=== PATIENT | female | born 1950 | race Caucasian/White ===

== ENCOUNTER 2018-03-11 19:05 | Emergency (ER) | payer MEDICARE, BC ==
[2018-03-11 19:28] VITALS: BP 154/91
[2018-03-11] MEDS ORDERED: HYDROcodone/ACETAMIN 5-325 MG* 1 TAB PO ONE (19:47)
--- NOTE | 2018-03-11 19:54 | ED ---
Back Pain - HPI Summary HPI Summary: 67 yr old female with the complaint of right flank pain. She fell down some steps when her slipper slipped on the stair. Her daughter was with her. No LOC. No head or neck injury. She hit her right flank area on the steps. She has pain in the area and it is worse when she stands. She has pain radiating into her right hip and buttock area. Denies other injuries. Pain is moderate. She had tried ice with little relief Injury occurred at 530 pm. - History of Current Complaint Chief Complaint: UCBackPain Stated Complaint: S/P FALL LOWER RIGHT BACK Time Seen by Provider: 03/11/18 19:37 Pain Intensity: 7 - Allergies/Home Medications Allergies/Adverse Reactions: Allergies Allergy/AdvReac Type Severity Reaction Status Date / Time phenobarbital Allergy See Comment Verified 03/11/18 19:19 Home Medications: Home Medications Atorvastatin* [Lipitor 20 MG*] 20 mg QPM 03/11/18 [History Confirmed 03/11/18] Escitalopram (NF) [Lexapro 5 mg (NF)] 5 mg QPM 03/11/18 [History Confirmed 03/11] Levothyroxine TAB* [Synthroid TAB*] 50 mcg QAM 03/11/18 [History Confirmed 03/11] PMH/Surg Hx/FS Hx/Imm Hx Endocrine/Hematology History: Reports: Hx Thyroid Disease - HYPO Cardiovascular History: Reports: Hx Hypertension - Surgical History Surgery Procedure, Year, and Place: PARATHYROID-2008. THYROID-2008. [place] teeth Infectious Disease History: No Infectious Disease History: Denies: Traveled Outside the [place] in Last 30 Days - Social History Alcohol Use: Rare Substance Use Type: Reports: None Smoking Status (MU): Never Smoked Tobacco Review of Systems Positive: Other - flank and back pain after falling. All Other Systems Reviewed And Are Negative: Yes Physical Exam Triage Information Reviewed: Yes Vital Signs On Initial Exam: Initial Vitals Temp Pulse Resp BP Pulse Ox 98.6 F 63 16 154/91 100 03/11/18 19:21 03/11/18 19:21 03/11/18 19:21 03/11/18 19:21 03/11/18 19:21 Vital Signs Reviewed: Yes Appearance: Positive: Well-Appearing, No Pain Distress Skin: Positive: Warm, Skin Color Reflects Adequate Perfusion Head/Face: Positive: Normal Head/Face Inspection Eyes: Positive: EOMI ENT: Positive: Normal ENT inspection Neck: Positive: Nontender Respiratory/Lung Sounds: Positive: Clear to Auscultation, Breath Sounds Present Cardiovascular: Positive: RRR. Negative: Murmur Abdomen Description: Positive: CVA Tenderness (R), Other: - no bruise anywhere on trunk. No tenderness of the abdomen. She has some cva tenderness right side. No tenderness over the right hip or right side of pelvis. Musculoskeletal: Positive: Strength/ROM Intact, Other - Negative CTLS tenderness. Neurological: Positive: Sensory/Motor Intact, Alert, Oriented to Person Place, Time, CN Intact II-III Psychiatric: Positive: Normal - [place] Coma Scale Best Eye Response: 4 - Spontaneous Best Motor Response: 6 - Obeys Commands Best Verbal Response: 5 - Oriented Coma Scale Total: 15 Diagnostics - Vital Signs Vital Signs Temp Pulse Resp BP Pulse Ox 03/11/18 19:21 98.6 F 63 16 154/91 100 - Laboratory Lab Statement: Any lab studies that have been ordered have been reviewed, and results considered in the medical decision making process. - CT abd pelvis/lumbar spine fracture CT Interpretation: Positive (See Comments) - L-3 spine fracture, transverse process, herniated disks. CT Interpretation Completed By: Radiologist Back Pain Course/Dx - Course Course Of Treatment: 67 yr old with flank injury, and complains of pain in right hip area. CT abd pelvis. She has spine fracture. transfer center at [facility] and they are aware of patient coming there for further evaluation. transfer by ambulance. - Diagnoses Provider Diagnoses: Fracture of lumbar spine, Radiculopathy Discharge - Sign-Out/Discharge Documenting (check all that apply): Discharge/Admit/Transfer - Discharge Plan Condition: Good Disposition: TRANS HIGHER LVL OF CARE FAC Referrals: Renée Neal MD [Primary Care Provider] - - Billing Disposition and Condition Condition: GOOD Disposition: Trans Higher Lvl of Care Fac
--- NOTE | 2018-03-11 21:17 | RAD ---
Indication: Right flank injury. Right low back pain. CT of the abdomen and pelvis was performed without oral or IV contrast administration. Coronal and sagittal reconstructed images were obtained. Lung bases demonstrate no pleural fluid, nodules or masses. Heart is of normal size without evidence of pericardial effusion. Liver is normal in size. No focal lesions or intrahepatic duct dilatation. The spleen is normal in size. The pancreas demonstrates no mass or pancreatic ductal location although the tail is not visualized. Common duct is not dilated. No adrenal masses are noted. The kidneys demonstrates no hydronephrosis. No focal masses are noted. No retroperitoneal lymphadenopathy is noted. The retroperitoneal hematoma is noted. Aorta and inferior vena cava are unremarkable. No dilated loops of bowel are noted. There is no free fluid in the pelvis. The uterus is otherwise unremarkable. No adnexal masses are noted. Urinary bladder demonstrates calculi in the urinary bladder. IMPRESSION: No retroperitoneal hematoma is identified. No intra-abdominal injury is noted. No evidence of hematoma is noted.
--- NOTE | 2018-03-11 21:20 | RAD ---
Indication: Back pain. CT of the lumbar spine was obtained in the axial plane. Sagittal and coronal reconstructed images were obtained. There is a nondisplaced fracture of the right transverse process of L3 vertebra. No displacement or hematoma is noted. The vertebral bodies otherwise appear normal in height and alignment no compression fracture. At L5-S1 broad-based protrusion and calcified disc appears to be in the right posterior lateral aspect of the disc space indenting the right thecal sac. L4-L5 small right paracentral disc protrusion indents the right ventral thecal sac and May narrow the right foramen. At L3-L4 left posterior lateral disc protrusion may narrow the left foramen. Degenerative disc disease at L2-L3 is noted. L1-L2 spinous processes are unremarkable. IMPRESSION: THERE IS A NONDISPLACED FRACTURE OF THE RIGHT L3 TRANSVERSE PROCESS. NO OTHER FRACTURES ARE NOTED. THERE ARE DEGENERATIVE DISC DISEASE AT L2-L3. THERE ARE MODERATE-SIZED BROAD-BASED PROTRUSIONS AT L5-S1 TO THE RIGHT WITH CALCIFICATION NARROWING THE RIGHT FORAMEN. AT L4-L5 RIGHT PARACENTRAL DISC PROTRUSION INDENTS THE THECAL SAC.
== END 2018-03-11 21:48 | disposition short-term general hospital (02) ==
LOC: UCCORT 19:05
DX: S32.039A Unspecified fracture of third lumbar vertebra, initial encounter for closed fracture (principal); W10.9XXA Fall (on) (from) unspecified stairs and steps, initial encounter; Y93.9 Activity, unspecified; Y92.009 Unspecified place in unspecified non-institutional (private) residence as the place of occurrence of the external cause; M54.16 Radiculopathy, lumbar region; M51.37 Other intervertebral disc degeneration, lumbosacral region; M51.27 Other intervertebral disc displacement, lumbosacral region; Z88.8 Allergy status to other drugs, medicaments and biological substances; I10 Essential (primary) hypertension; E89.0 Postprocedural hypothyroidism
CPT/HCPCS: 72131; 74176; 81003; 87086; 99213; G0463